=== PATIENT | female | born 1965 | race Caucasian/White ===

== ENCOUNTER → 2021-03-24 | Outpatient (CLI) | payer BC | LOC: US 03-09 09:30 → KOH-I 08:00 | DX: K76.0 Fatty (change of) liver, not elsewhere classified (principal) | CPT/HCPCS: 76700 ==

== ENCOUNTER → 2021-04-01 | Outpatient (CLI) | payer BC | LOC: KOH-I 10:11 | DX: R05.9 Cough, unspecified (principal) | CPT/HCPCS: 71046 ==